=== PATIENT | male | born 1980 | race Caucasian/White ===

== ENCOUNTER → 2024-04-07 | Outpatient (CLI) | payer BC ==
[~2024-04-07] MED LIST: ATIVAN2 MG PO; AUGMENTIN 875-1 EAC1 PO; FLOMAX 0.40.4 MG/CAP PO; LEXAPRO 10MG10 MG PO; LORAZEPAM0.5 M1 PO; NORCO 325 MG-51 TA1 PO; ZOFRAN ODT4 MG PO
== END ==
LOC: RAD 10:57
DX: N20.2 Calculus of kidney with calculus of ureter (principal)